=== PATIENT | male | born 1985 | race Caucasian/White ===

== ENCOUNTER 2018-11-03 10:44 | Outpatient (CLI) | payer BC ==
--- NOTE | 2018-11-03 11:47 | MRI ---
MRI OF LUMBAR SPINE PERFORMED WITHOUT CONTRAST ENHANCEMENT: History: Back pain and right sided sciatica. FINDINGS: Vertebral bodies are normal in height. Disc desiccation changes are seen at L5-S1 with minimal disc n arrowing. There is no significant periaortic adenopathy. Visualization of the kidneys is limited but no abnormalities are seen. T12-L1: Unremarkable. L1-2: Unremarkable. L2-3: Degenerative facet changes. No canal or foraminal stenosis. L3-4: Mild degenerative facet changes. No canal or foraminal stenosis. L4-5: Degenerative facet changes, mild ligamentous hypertrophic change but no canal or foraminal narr owing. L5-S1: There is a left paracentral disc protrusion at this level, perhaps minimally impressing on the left SI nerve root. No foraminal narrowing. IMPRESSION: Left paracentral disc protrusion at L5-S1 minimally impressing on the left S1 nerve root. POS: [facility]
== END 2018-11-03 10:45 | disposition home or self-care (01) ==
LOC: TBSIIMAG 10:44
PROVIDERS: ATTEND Family Medicine
DX: M51.17 Intervertebral disc disorders with radiculopathy, lumbosacral region (principal)
CPT/HCPCS: 72148